=== PATIENT | male | born 1970 | race Caucasian/White ===

== ENCOUNTER 2024-02-05 16:28 | Day surgery (SDC) | payer OTHER, SELFPAY ==
[2024-02-05] VITALS (13 sets, daily range): BP systolic 97–174; BP diastolic 62–91; BMI 29.8
[2024-02-05 12:28] LABS: % Basophils 0.9 % (0-2); % Immature Granulocytes 0.5 % (0-0.5); % Lymphocytes 28.4 % (20.5-51.1); % Monocytes 6.8 % (1.7-9.3); % Neutrophils 61.4 % (42.2-75.2); Absolute Basophils 0.1 10^3/uL (0-0.2); Absolute Eosinophils 0.1 10^3/uL (0-0.7); Absolute Lymphocytes 1.8 10^3/uL (1.2-3.4); Absolute Monocytes 0.4 10^3/uL (0.1-0.6); Hematocrit 44.2 % (39.0-52.0); Hemoglobin 15.8 g/dL (13.0-18.0); Mean Corp Hgb Conc. 35.7 g/dL (33.0-37.0); Mean Corpuscular Hgb 30.1 pg (27.0-31.0); Mean Corpuscular Volume 84.2 fL (80.0-94.0); Mean Platelet Volume 9.2 fL (7.4-10.4); Nucleated Red Blood Cells % 0 % (-); Platelet Count 205 10^3/uL (130-400); Red Blood Cell Count 5.25 10^6/uL (4.70-6.10); Red Cell Dist. Width 12.3 % (11.5-14.5); White Blood Cell Count 6.4 10^3/uL (4.8-10.8)
[2024-02-05 12:40] LABS: INR 0.92; PT 12.2 Sec (11.4-14.6)
[2024-02-05 12:41] LABS: ALT (SGPT) 38 U/L (0-50); AST (SGOT) 38 U/L (17-59); Albumin 4.9 g/dl (3.5-5.0); Alkaline Phosphatase 70 U/L (38-126); Blood Urea Nitrogen 16 mg/dl (9-20); Calcium 9.2 mg/dl (8.4-10.2); Carbon Dioxide 28 mmol/L (22-30); Chloride 105 mmol/L (98-107); Glucose 96 mg/dl (70-99); Potassium 4.6 mmol/L (3.5-5.1); Sodium 138 mmol/L (135-145); Total Bilirubin 0.8 mg/dl (0.2-1.3); Total Protein 7.9 g/dl (6.3-8.2); eGFR > 60.00
[2024-02-05 12:50] LABS: Troponin I < 0.012 ng/ml
--- NOTE | 2024-02-05 14:34 | ED.GENMED ---
History of Present Illness
General
Chief Complaint: Chest Pain
Source: patient
Exam Limitations: none
Time Seen by Provider: 02/05/24 13:56
Nursing documentation reviewed up to this point in time: agreed with
Travel History
Have you had any contact with someone who has COVID-19?: No
Do you have any symptoms of coronavirus? Fever > 100 degrees, chills, cough, shortness of breath, sore throat, loss of taste or smell, muscle aches, or headache?: No
History of Present Illness
History of Present Illness:
Patient with history of CAD, including multiple cardiac stent placements in 2017 as well as cardiac arrest, presents to ED secondary to recurrent left-sided chest pain over the past 2 weeks. Chest pain described as stabbing, radiating to left arm,
without any alleviating or exacerbating factors. Patient also reports shortness of breath with exertion, which he has not experienced in the past. In addition, patient has been experiencing increased 'belching'. Patient and family report that his
symptoms are similar to what he experienced 'heart attack'. Denies recent travel or surgery. Denies leg pain or swelling. Denies back pain. Denies recent injury. Denies recent change in medications or diet.
Past History
Past History
ED Past Medical History: Arrthythmia (Atrial tachycardia), Hypercholesterolemia, CO and Other (Cardiac arrest)
ED Past Surgical History: Cardiac (Stent X3)
Social History
Tobacco: Former smoker
Alcohol: Occasional
Drug: None
Personal: Single
Living: with family
Employment: Employed
Family History
Family History: Early CAD
Review of Systems
Review of Systems
Allergies reviewed?: Yes
All Other Systems: ROS reviewed and negative except as documented in HPI and ROS
Constitutional: Reports no symptoms; Denies fever
EENT: Reports no symptoms
Respiratory: Reports no symptoms
Cardiac: Reports chest pain
ABD/GI: Reports nausea
: Reports no symptoms
Musculoskeletal: Reports no symptoms
Skin: Reports no symptoms
Neurological: Reports no symptoms
Phy Exam
Physical Exam
Physical Exam:
Physical Exam
General: no apparent distress, not acutely ill. afebrile
Head: nc/at. eomi
Neck: supple. no meningeal signs.
Heart: s1/s2 regular rate and rhythm, no murmur. equal radial pulses.
Lungs: no acute respiratory distress. clear bilaterally. chest wall nontender to palpation.
Abdomen: normal bowel sounds. not tender.
Neuro: alert and oriented. no focal neurological deficits
Skin: no rash
Psychiatric: well kept. interactive and cooperative
Extremities: no edema. no calf tenderness.
Scores
Heart Score for Chest Pain Patients
STEMI patient?: No
History: Moderately Suspicious
ECG: Normal
Age: >/= 65 years
Risk Factors: >/= 3 Risk Factors or History of CAD
Troponin: </= Normal Limit
Heart Score for Chest Pain Patients: 5
Heart Score Risk: 20.3% MACE over next 6 weeks
Course
Orders/Labs/Results
Orders:
Orders
02/05/24 Lunch
Cholesterol Lowering
At Your Request: Full Participation
Cholesterol Lowering: Sodium, 2 Gram
02/05/24 12:13
EKG [Electrocardiogram (*1)] Urgent
Reason for Study: Chest Pain
EKG- Treatment ONCE
02/05/24 12:23
Complete Blood Count/With Diff Urgent
Comprehensive Metabolic Panel Urgent
PT/INR [Prothrombin Time] Urgent
Troponin I Urgent
02/05/24 14:16
Nitroglycerin Sublingual [Nitrostat (Sublingual)] 0.4 mg SL NOW STA
CR Chest Portable - 1 View Urgent
Comment:
Reason For Exam: chest pain
Reason Study Needs to be Portable: Patient Unstable
02/05/24 14:48
Nitroglycerin Ointment [Nitro-Bid] 1 inch TOPICAL NOW STA
02/05/24 15:47
Aspirin Chewable [Low Strength Aspirin] 324 mg .ROUTE .STK-MED ONE
02/05/24 16:47
Admit Patient As Directed
Co-Sign Provider:
Level of Care: Post Proc/Surg Recovery
Assign to:: IVU
Physician / Group: dca
Diagnosis: Chest pain
Reason for Overnight Stay: Standard of Care
VTE Contraindication Routine
VTE Mechanical Device Contraindication: Low Risk- LOS < 2 days
Pharmocologic Contraindication: Low Risk- LOS < 2 days
Risk assessment completed and pt is low risk: Yes
Acetaminophen [Tylenol] 650 mg PO Q4HPRN PRN
Activity As Directed
Activity Level: Out of Bed- Ad Miranda
Activity Frequency: Ad Miranda
Internal Combustion Engine Assembler Procedure As Directed
Cardiac Cath Procedure: cardiac catheterization
Notify MD As Directed
Notify physician if: immediately for chest pain or bleeding from access site(s)
Radial Artery Hemostasis Method As Directed
Instructions:: 3 mL out at 1 hour post placement of band
3 mL out at 1 1/2 hours post placement of band
3 mL out at 2 hours post placement of band
Off at 2 1/2 hours post placement of band
If any oozing or hemotoma occurs:: re-inflate band and call provider
Site Checks As Directed
Check access site for bleeding/hematoma: Yes
Comment: on arrival, Q15min x4, Q30min x2, Q1 hr x2, Q2 hr x2, Q4 hr or per
protocol
Vascular Checks As Directed
Location: distal to access site - pulse check
Frequency: Other
Comment: on arrival, Q15min x4, Q30min x2, Q1 hr x2, Q2 hr x2, Q4 hr or per protocol
Vital Signs As Directed
Frequency: Other
Additional Instructions:: on arrival, Q15min x4, Q30min x2, Q1 hr x2, Q2 hr x2, then Q4 hr or per unit
protocol
02/05/24 16:50
Troponin I Urgent
02/05/24 16:59
Furosemide [Lasix] 20 mg IV NOW STA
02/05/24 17:00
0.9% Sodium Chloride 1000 ml [Nss] 1,000 ml IV PER PROTOCOL
Infusion rate in mL/kg/hr:: 1.5
Infusion rate in mL/hr:: 137
Duration of infusion (hours):: 3
Amlodipine [Norvasc] 2.5 mg PO DAILY
02/06/24 05:04
Basic Metabolic Panel IN AM
Cardiovascular Evaluation IN AM
Complete Blood Count/No Diff IN AM
02/06/24 08:23
Discharge Patient As Directed
Is patient a candidate for the influenza vaccine?: No
Do you have a designated caregiver: No
02/06/24 09:00
Pantoprazole [Protonix] 40 mg PO DAILY
02/06/24 12:00
Aspirin Chewable [Low Strength Aspirin] 81 mg PO NOON
Clopidogrel Bisulfate [Plavix] 75 mg PO NOON
Rosuvastatin Calcium [Crestor] 40 mg PO NOON
Abnormal Lab Results
02/05/24
16:34
POC ACT Low Range 294 H Seconds
(116-155)
02/06/24 05:04
02/06/24 05:04
Vital Signs
Initial and Last Documented VS:
Initial Vital Signs
Temp Pulse Resp BP Pulse Ox
98.5 F 56 16 174/83 98
02/05/24 12:15 02/05/24 12:15 02/05/24 12:15 02/05/24 12:15 02/05/24 12:15
Last Documented Vital Signs
Temp Pulse Resp BP Pulse Ox
97.9 F 59 18 121/67 98
02/06/24 07:42 02/06/24 08:00 02/06/24 07:42 02/06/24 07:38 02/06/24 08:22
MDM/Problems Addressed
MDM/Problems Addressed:
EKG: no sig acute changes. 1st troponin normal.
CP resolved after one NTG Sl. Nitropaste applied.
Awaiting cardiology consultation, due to sig. risk factors along with presenting symptoms.
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
*EKG
Interpreted by ED Provider?: Yes
EKG Intrepretation Date: 02/05/24
Heart Rate: 51
Rate: bradycardiac
Rhythm: sinus
[place]: normal axis
Interval: normal interval
Ischemia: T-wave inversion
*Critical Care Note
Total Time (30-74mins, 75-104mins- exclusive of procedures): Not Applicable
ED Attending Note
-
Portions of this chart may have been created with voice recognition software.� Occasional wrong word or��sound alike� substitutions may have occurred due to the inherent limitations of voice recognition software.
Discharge Plan
Departure
Patient Disposition: BUNKER WORKER
Date of Disposition: 02/05/24
Time of Disposition: 15:47
Admit to: clinical laboratory technologist
Presentation/result/management discussed w/ accepting MD/DO:
Discharge Problem:
Chest pain
Interventions
Interventions:
*Risk Screen - Suicide Last Done: 02/05/24 14:20
*General Assessment Last Done: 02/05/24 14:20
*Neglect/Abuse Screening Last Done: 02/05/24 14:20
ED- Fall Risk Assessment Last Done: 02/05/24 14:20
*ED COVID-19 Vaccine History Last Done: 02/05/24 14:20
*Nursing Disposition Last Done: 02/05/24 15:50
ED- Cardiac Assessment Last Done: 02/05/24 14:20
Discharge Date and Time
Discharge Date/Time: 02/05/24 15:55
--- NOTE | 2024-02-05 14:40 | CON.CAR ---
Consultation
Consultation Request
Date/Time Consultation Requested: 02/05/2024
Date/Time Consultation Performed: 02/05/2024
Requesting Provider: Dr. Wong
Performing Provider: Dr. Ruano
Reason for Consultation: Chest pain
Medical History
-
History of Present Illness:
HPI: Anthony is a 53-year-old male with past medical history of CAD with prior stenting to the LAD and circumflex with COOK HELPER FRUIT of the PDA, prior VF arrest, ischemic cardiomyopathy, and hyperlipidemia. He presented to ER for evaluation after he has
noted a few weeks of progressively worsening left-sided chest pain. He states around the same time, he has also noticed decreased exercise capacity with exertional dizziness and shortness of breath. At baseline, he reports he is very active,
however has not been able to do his usual activities due to symptoms. With time, his pain has progressed and he has started to notice radiation into his left arm for the past week. His pain has also become more consistent and he notes the pain in
his chest is consistently there, however will wax and wane in severity. He has been compliant with his aspirin, Plavix, and Crestor. He has not taken any sublingual nitroglycerin at home. He also reports that over this time period, he has noted
increased belching. He reports these symptoms feel similar to his symptoms prior to his cardiac arrest in 2016. He called the office on 02/03/2024 and was instructed to come to the ER, however he did not and wanted to wait till after he was seen by
his PCP. He was seen by his PCP on 02/03/2024 and labwork was ordered, however he has not gotten results yet back. Given progressively worsening symptoms, he came to the ER for evaluation. In ER, initial troponin is negative, however given active
chest pain, he was given sublingual nitroglycerin and had Nitropatch placed. Following this, his pain is resolved entirely. Initially, blood pressure was significantly elevated on arrival at 174/83, however has improved following nitroglycerin to
113/77. Cardiology consulted given significant history and risk factors with concerning symptoms.
PMH:
CAD
s/p 3.5 x 38 and 3.0 x 38 mm Xience SHILPA to proximal and mid LAD w/ PTCA of first diagonal 03/24/2016
s/p 3.5 x 15 mm Xience SHILPA to mid circumflex 03/31/2016
stable CAD w/ COOK HELPER FRUIT of PDA, 50% stenosis of OM1 by cath 06/07/2021
h/o OOH VF arrest 02/2016
3 rounds of epi and defibrillation x3
Ischemic cardiomyopathy
HLD
Past Medical History
Past Medical History: Other (In HPI)
Past Surgical History: Cardiac (SHILPA to LAD, circ, diag) and Orthopedic
Social History
Tobacco: Former Smoker
Alcohol: Occasional
Drug: None
Personal:
Living: With Family
Employment: Employed
Family History
Family History: CAD
Allergies / Home Medications
Allergy/AdvReac Type Severity Reaction Status Date / Time
lactose AdvReac Nausea Verified 02/05/24 12:17
peanuts Allergy Swelling Uncoded 02/05/24 12:17
Medication Instructions Recorded Confirmed Type
aspirin 81 mg chewable tablet 81 mg PO DAILY ##30 04/02/16 06/07/21 Rx
clopidogrel 75 mg tablet 75 mg PO DAILY #30 tabs 04/02/16 06/07/21 Rx
rosuvastatin 40 mg tablet (Crestor) 30 mg PO DAILY 12/08/18 06/07/21 History
amoxicillin 500 mg capsule 500 mg PO DAILY 06/07/21 06/07/21 History
Review of Systems
-
History Source: Patient and Family
All other systems: Negative unless noted
Physical Exam
Vital Signs
Temp Pulse Resp BP Pulse Ox
98.5 F 56 21 138/82 98
02/05/24 12:15 02/05/24 14:30 02/05/24 14:30 02/05/24 14:10 02/05/24 14:30
Lab Results
02/05/24 12:23
02/05/24 12:23
Troponin I < 0.012 ng/ml 02/05/24 12:23
Physical Exam
General: Well Developed, Well Nourished and No Apparent Distress
HEENT: Normocephalic, Anicteric and Moist Mucous Membranes
Respiratory: Clear and Non Labored Respirations
Cardiac: S1/S2 and Regular Rhythm
Musculoskeletal: No Clubbing, No Cyanosis and No Edema
Skin: Warm and Dry
Neuro: AO x 3 and Nonfocal/Grossly Intact
Psych: Calm
Impression / Plan
-
PCP: Dr. Johnson
Back Tender Cloth Printing: Dr. Florence
Impression:
Presented with progressive chest pain
Unstable angina
CAD
s/p 3.5 x 38 and 3.0 x 38 mm Xience SHILPA to proximal and mid LAD w/ PTCA of first diagonal 03/24/2016
s/p 3.5 x 15 mm Xience SHILPA to mid circumflex 03/31/2016
stable CAD w/ COOK HELPER FRUIT of PDA, 50% stenosis of OM1 by cath 06/07/2021
h/o OOH VF arrest 02/2016
3 rounds of epi and defibrillation x3
Ischemic cardiomyopathy
HLD
Echo 11/09/2019: EF 52%, aortic sclerosis with trace AR, trace MR
LHC 06/07/2021: Left Main: Normal. LAD: There is a 25% ostial LAD stenosis, unchanged from the previous catheterization.� The proximal to mid LAD stents are widely patent.� The first diagonal which had PTCA during his RI is widely patent.�
Well-developed collaterals from the apical LAD fill the RPDA. Circumflex: Luminal irregularities.� The stent in the mid circumflex is widely patent.� The very small OM1 has a proximal 50% stenosis, actually appears improved since the previous
catheterization. RCA: Luminal irregularities. The mid RCA has some ectasia and plaque.� The mid and mid to distal RPDA is small with diffuse disease and essentially a chronic total occlusion which fills by well-developed collaterals from the LAD,
unchanged from the previous catheterization.
Plan:
-Presented with progressively worsening chest pain and left arm pain for the past few weeks.
-Symptoms have progressed to the point that he has constant pain that waxes and wanes in severity. Also has noted decreased exercise tolerance with exertional SOB and dizziness.
-He has history of CAD w/ prior stenting of the LAD, circ, and first diagonal as described above. Compliant w/ aspirin and plavix as OP
-Given symptoms concerning for unstable angina with significant cardiac history, will take urgently for cardiac catheterization today.
-EKG reviewed. SR with no acute ischemic changes noted, stable from prior.
-BP elevated on arrival. Has history of dizziness and hypotension/bradycardia and has not tolerated lisinopril or metoprolol in the past.
-Blood pressures improved after nitro patch placed in ER. Consider re-trialing low dose beta aquiles
-h/o ischemic cardiomyopathy. Recheck echo this admission. EF was as low as 25-30% in 2016, however was improved to 52% by echo 10/2019.
-Check CVE, Hgb A1c in AM.
-Continue Crestor 40mg daily.
HPI: Anthony is a 53-year-old male with past medical history of CAD with prior stenting to the LAD and circumflex with COOK HELPER FRUIT of the PDA, prior VF arrest, ischemic cardiomyopathy, and hyperlipidemia. He presented to ER for evaluation after he has
noted a few weeks of progressively worsening left-sided chest pain. He states around the same time, he has also noticed decreased exercise capacity with exertional dizziness and shortness of breath. At baseline, he reports he is very active,
however has not been able to do his usual activities due to symptoms. With time, his pain has progressed and he has started to notice radiation into his left arm for the past week. His pain has also become more consistent and he notes the pain in
his chest is consistently there, however will wax and wane in severity. He has been compliant with his aspirin, Plavix, and Crestor. He has not taken any sublingual nitroglycerin at home. He also reports that over this time period, he has noted
increased belching. He reports these symptoms feel similar to his symptoms prior to his cardiac arrest in 2015. He called the office on 02/03/2024 and was instructed to come to the ER, however he did not and wanted to wait till after he was seen by
his PCP. He was seen by his PCP on 02/03/2024 and labwork was ordered, however he has not gotten results yet back. Given progressively worsening symptoms, he came to the ER for evaluation. In ER, initial troponin is negative, however given active
chest pain, he was given sublingual nitroglycerin and had Nitropatch placed. Following this, his pain is resolved entirely. Initially, blood pressure was significantly elevated on arrival at 174/83, however has improved following nitroglycerin to
113/77. Cardiology consulted given significant history and risk factors with concerning symptoms.
Data Reviewed
-
EKG: Tracing Personally Visualized and interpreted
Radiology: Report Reviewed by me
Labs: Labs Reviewed by me
Old Records: Reviewed
[2024-02-05] MEDS: NITROSTAT (SUBLINGUAL) 0.400000000000000022 MG SL (14:41)
--- NOTE | 2024-02-05 14:48 | EDRN ---
Post NTG pt's pain completely gone from his chest and L arm. Dr. Encinas informed and just in to see pt.
--- NOTE | 2024-02-05 14:48 | EDRN ---
Dr. Wong said Dr. Olson to be down to see pt.
[2024-02-05] MEDS: NITRO-BID 1 INCH TOPICAL (14:50)
--- NOTE | 2024-02-05 14:58 | EDRN ---
Vilma MARTINEZ w/ cardiology in room w/pt at this time.
--- NOTE | 2024-02-05 15:36 | EDRN ---
Dr. Morris w/ cardiology in room w/pt discussing plan.
--- NOTE | 2024-02-05 15:45 | EDRN ---
Report given to Marita CASANOVA in label press operator at this time. Dr. Morris has consent for procedure w/ her.
--- NOTE | 2024-02-05 15:53 | ITS.CL.CATH ---
Home Service Advisor - Catheterization
Cardiac Catheterization
Procedure Report:
LEFT HEART CATHETERIZATION
Date of Procedure: February 05, 2024
Referring: [place] emergency department
PROCEDURES:
1. Left heart catheterization, coronary angiogram.
2. Ultrasound-guided access
3. Physiologic functional testing with IFR of proximal LAD
INDICATION: Mr Prabhakar is a 53-year-old gentleman with past medical history of an anterior wall ND complicated by out of hospital cardiac arrest, hypothermia and multivessel CAD with stenting of the mid to proximal LAD and PTCA of the D1 February
2015,� 90% small vessel RPDA left untreated (HOUSEHOLD WORKER since 2020) and later circumflex stented March 31, 2016 on chronic aspirin and Plavix who now presents with exertional chest discomfort and shortness of breath progressive over the last couple of
weeks being referred for left heart catheterization to rule out obstructive CAD.
ACCESS: Right radial artery, 6 [place] sheath, under ultrasound-guidance
HEMODYNAMICS : (mmHg)
AO (s/d) : 118/72
LV (s/d) : 115/5
LVEDP : 17
CORONARY FINDINGS
DOMINANCE: Right
LEFT MAIN: The left coronary artery is a large-caliber vessel which gives rise to the left anterior descending artery and the left circumflex artery. There is minimal luminal irregularities.
LEFT ANTERIOR DESCENDING: There is a 50-60% eccentric proximal LAD stenosis (proximal to prior stents), very mildly worse compared to the previous catheterization in 2020.� This lesion was IFR negative at 0.92. The proximal to mid LAD stents are
widely patent.� The first diagonal which had PTCA during his index ND in 2015 is patent.� Well-developed collaterals from the apical LAD fill the RPDA.
LEFT CIRCUMFLEX: The left circumflex artery is a medium caliber vessel which gives rise to multiple small to medium caliber obtuse marginal branches. The stent in the mid circumflex is widely patent.� There is mild diffuse atherosclerotic plaque in
the proximal left circumflex.
RIGHT CORONARY ARTERY: The right coronary artery is a large-caliber, dominant vessel which gives rise to right posterior descending artery and the right posterolateral system. Mid RCA has mild diffuse atherosclerotic plaque with mild degree of
ectasia. The mid and mid to distal RPDA is small with diffuse disease and essentially a chronic total occlusion which fills by well-developed collaterals from the LAD, unchanged from the previous catheterization in 2020.
HEMODYNAMIC ASSESSMENT OF THE PROXIMAL LAD WITH A [place] OMNI WIRE: The origin of the left coronary artery was cannulated with a 6 Fr EBU 3.75 guide catheter. Intravenous heparin was administered and the ACT was followed during the procedure. Two
hundred micrograms of intracoronary nitroglycerin was given through the guide catheter. A [place] Omni wire was advanced to the guide catheter tip and normalized in the left main. The Omni wire was then carefully manipulated across the stenosis in
the proximal LAD into the proximal LAD with the iFR above the ischemic threshold serially measuring 0.98, 0.97, 0.97. The Omni wire was then advanced into the mid LAD and IFR was rechecked which was still above the ischemic threshold at 0.92, 0.92
and 0.93. The Omni wire was then pulled back to the guide catheter where the Pd/Pa measured 1.0 confirming no baseline drift in pressure readings.
SEDATION: 51 minutes of procedural sedation was utilized. An independent medical coordinator pesticide use was present to assist with and help manage the patient's level of consciousness and physiologic status.
RADIATION SUMMARY: Fluoro Time (min): 6.1, Dose (mGy): 656.4, DAP (Gy.cm2) : 43.8
Closure Device: Vascular band over right radial artery, 12 cc of air
CONCLUSIONS
1. Widely patent LAD and circumflex stents, HOUSEHOLD WORKER of the PDA, unchanged from the previous catheterization.
2. IFR negative 50 to 60% proximal LAD stenosis proximal to prior stents.
3. Mildly elevated LVEDP at 17 mmHg.
RECOMMENDATIONS
1. Will trial low-dose diuretic given elevated LVEDP low-dose amlodipine for possible microvessel disease.
2. Optimization of cardiovascular risk factors.
3. Wean radial band per protocol.
4. Full echocardiogram to assess left ventricular systolic function.
5. Referral for outpatient cardiac rehab
Copy to: Peter Florence
Alexandra Ruano MD, FACC, [facility]
[2024-02-05 16:40] LABS: ACT-LR - POC 294 Seconds (116-155)
--- NOTE | 2024-02-05 17:13 | CM ---
Reviewed chart. Met with Mr. Prabhakar to review discharge plans. He states prior to admission he resides with his significant other in a two sotry home without any steps to enter. He states he has a bedroom/full bathroom on each floor. He states
prior to admission he was independent with ambulation and adls. He states he does not have any DME in the home. He states he has a prescription plan. The discharge plan is to return home with his significant other when medically stable.
[2024-02-05 17:28] LABS: Troponin I < 0.012 ng/ml
[2024-02-05] MEDS: NORVASC PO (17:41)
--- NOTE | 2024-02-05 17:55 | PTCARENOTE ---
PT's BP 103/68, 97,65, 102/64, HR 40's sinus tiny. Pt's minerva and Chadwick heredia, Dr Ruano aware.
[2024-02-06 04:58] VITALS: BP 125/71
[2024-02-06 05:19] LABS: Hematocrit 40.5 % (39.0-52.0); Hemoglobin 14.7 g/dL (13.0-18.0); Mean Corp Hgb Conc. 36.3 g/dL (33.0-37.0); Mean Corpuscular Hgb 30.1 pg (27.0-31.0); Mean Platelet Volume 9.5 fL (7.4-10.4); Platelet Count 184 10^3/uL (130-400); Red Blood Cell Count 4.88 10^6/uL (4.70-6.10); Red Cell Dist. Width 12.4 % (11.5-14.5); White Blood Cell Count 7.3 10^3/uL (4.8-10.8)
--- NOTE | 2024-02-06 05:19 | PTCARENOTE ---
R radial band came off without an issue- SB 40s-50s overnight. no complaints of chest pain. discussed POC. ambulating in the room as a self. BPs 110s-120s/70s-90s.
[2024-02-06 05:42] LABS: Blood Urea Nitrogen 17 mg/dl (9-20); Calcium 8.9 mg/dl (8.4-10.2); Carbon Dioxide 26 mmol/L (22-30); Chloride 107 mmol/L (98-107); Estimated Creatinine Clearance 104 ml/min; Glucose 93 mg/dl (70-99); HDL Cholesterol 43 mg/dl; LDL Cholesterol, Calculated 81 mg/dl; Potassium 4.2 mmol/L (3.5-5.1); Sodium 137 mmol/L (135-145); Total Cholesterol 148 mg/dl (50-199); Triglyceride 122 mg/dl (10-149); Very Low Density Lipoprotein 24 mg/dl (0-30); eGFR > 60.00
[2024-02-06 07:38] VITALS: BP 121/67
[2024-02-06] MEDS: NORVASC 2.5 MG PO (08:08)
--- NOTE | 2024-02-06 08:10 | W.PN.CARDCBS ---
Addendum entered and electronically signed by Arsenio Olson MD 02/06/24 12:01:
I saw and examined the patient.
The [employer] [facility] [facility] [facility] or PA's note was reviewed and I agree with the note.
Comment: General: Well developed, well nourished in NAD.
Stable cardiology status for discharge
Follow-up arranged
Low-dose Norvasc was added
Discharge to home
Discussed with nurse
Original Note:
Today's Communication / Plan
-
Aspirin, Plavix
Low-dose Norvasc
Protonix
Crestor 40mg
Sublingual nitro
Outpatient echo
For DC today
total DC time >30 minutes
Impression / Plan
-
PCP: Dr. Johnson
Pitching Coach: Dr. Florence
Impression:
Presented with progressive chest pain
Unstable angina
CAD
s/p 3.5 x 38 and 3.0 x 38 mm Xience SHILPA to proximal and mid LAD w/ PTCA of first diagonal 03/24/2016
s/p 3.5 x 15 mm Xience SHILPA to mid circumflex 03/31/2016
stable CAD w/ SENIOR ACCOUNT MANAGER of PDA, 50% stenosis of OM1 by cath 06/07/2021
h/o OOH VF arrest 02/2016
3 rounds of epi and defibrillation x3
Ischemic cardiomyopathy
HLD
Echo 11/09/2019: EF 52%, aortic sclerosis with trace AR, trace MR
C 06/07/2021: Left Main: Normal. LAD: There is a 25% ostial LAD stenosis, unchanged from the previous catheterization.� The proximal to mid LAD stents are widely patent.� The first diagonal which had PTCA during his PR is widely patent.�
Well-developed collaterals from the apical LAD fill the RPDA. Circumflex: Luminal irregularities.� The stent in the mid circumflex is widely patent.� The very small OM1 has a proximal 50% stenosis, actually appears improved since the previous
catheterization. RCA: Luminal irregularities. The mid RCA has some ectasia and plaque.� The mid and mid to distal RPDA is small with diffuse disease and essentially a chronic total occlusion which fills by well-developed collaterals from the LAD,
unchanged from the previous catheterization.
Plan:
-presented with daily chest pain over the last 2 weeks
-Cardiac catheterization 02/06/2024 with stable CAD, widely patent LAD and circumflex stents, SENIOR ACCOUNT MANAGER of PDA, IFR negative 50 to 60% proximal LAD stenosis. Plan for medical therapy.
-R radial site c/d/i
-EKGs nonischemic
-as bradycardic at baseline, will add low dose norvasc 2.5mg for antianginal
-continue asa, plavix
-continue crestor. LDL 81. he reports he has recently changed his diet to be healthier
-he complains of some issues with gas. he was previously seen by GI, however not recently. will add protonix and follow
-should be scheduled for OP echo
-Op cardiac follow up arranged
-for DC to home today if ambulatory without recurrence of CP
-d/w nursing
HPI: Anthony is a 53-year-old male with past medical history of CAD with prior stenting to the LAD and circumflex with SENIOR ACCOUNT MANAGER of the PDA, prior VF arrest, ischemic cardiomyopathy, and hyperlipidemia. He presented to ER for evaluation after he has
noted a few weeks of progressively worsening left-sided chest pain. He states around the same time, he has also noticed decreased exercise capacity with exertional dizziness and shortness of breath. At baseline, he reports he is very active,
however has not been able to do his usual activities due to symptoms. With time, his pain has progressed and he has started to notice radiation into his left arm for the past week. His pain has also become more consistent and he notes the pain in
his chest is consistently there, however will wax and wane in severity. He has been compliant with his aspirin, Plavix, and Crestor. He has not taken any sublingual nitroglycerin at home. He also reports that over this time period, he has noted
increased belching. He reports these symptoms feel similar to his symptoms prior to his cardiac arrest in 2016. He called the office on 02/03/2024 and was instructed to come to the ER, however he did not and wanted to wait till after he was seen by
his PCP. He was seen by his PCP on 02/03/2024 and labwork was ordered, however he has not gotten results yet back. Given progressively worsening symptoms, he came to the ER for evaluation. In ER, initial troponin is negative, however given active
chest pain, he was given sublingual nitroglycerin and had Nitropatch placed. Following this, his pain is resolved entirely. Initially, blood pressure was significantly elevated on arrival at 174/83, however has improved following nitroglycerin to
113/77. Cardiology consulted given significant history and risk factors with concerning symptoms.
Progress Note - Pitching Coach
Subjective
Date of Service: February 06, 2024
No chest pain overnight
Objective
Labs:
02/06/24 05:04
02/06/24 05:04
Labs
Hgb 14.7 g/dL (13.0-18.0) 02/06/24 05:04
Hct 40.5 % (39.0-52.0) 02/06/24 05:04
Plt Count 184 10^3/uL (130-400) 02/06/24 05:04
PT 12.2 Sec (11.4-14.6) 02/05/24 12:23
INR 0.92 02/05/24 12:23
Sodium 137 mmol/L (135-145) 02/06/24 05:04
Potassium 4.2 mmol/L (3.5-5.1) 02/06/24 05:04
BUN 17 mg/dl (9-20) 02/06/24 05:04
Creatinine 0.8 mg/dL (0.7-1.3) 02/06/24 05:04
Glucose 93 mg/dl (70-99) 02/06/24 05:04
Troponins
02/05/24 02/05/24
12:23 16:50
Troponin I < 0.012 < 0.012
Vital Signs and I&O:
Vital Signs
Temp Pulse Resp BP Pulse Ox
97.9 F 54 18 125/71 97
02/06/24 07:42 02/06/24 05:00 02/06/24 07:42 02/06/24 04:58 02/06/24 07:42
Vital Signs
Temp Pulse Resp BP Pulse Ox
97.9 F 54 18 125/71 97
02/06/24 07:42 02/06/24 05:00 02/06/24 07:42 02/06/24 04:58 02/06/24 07:42
Physical Exam
Physical Exam
GEN: No distress, awake, alert, oriented x3
HEENT: supple, anicteric, mmm, EOMI
LUNGS: CTA bilaterally, no wheezes/rales
CV: Reg and bradycardia, S1/S2, no murmur
ABD: soft, BS+, NT/ND
EXT: No cyanosis, clubbing, edema
NEURO: Gross non-focal
SKIN: Warm, pink, dry. No rash. Right wrist site clean dry and intact, mild surrounding ecchymoses
[2024-02-06] MEDS: PROTONIX 40 MG PO (08:17)
--- NOTE | 2024-02-06 08:23 | W.DS.TRANS ---
DC Summary - [employer]
-
Discharge Instructions:
Discharge Diagnosis/Procedures Cardiac cath
Diet Low Cholesterol
Activity As tolerated
Driving Restrictions No driving for 24 hours
Bathing Restrictions None
Instructions:
Stand-Alone Forms: DC Instructions- Cath/EP Lab
Changes to Home Medications: Yes
Discharge Medications:
DC Medications w/original date entered in [facility]
rosuvastatin 40 mg tablet (Crestor) 40 mg PO NOON 12/08/18
Lactobac no.2-Bifidobac no.1-S. thermo 112.5 billion cell capsule (Visbiome) 1 cap PO DAILY 02/05/24
amlodipine 2.5 mg tablet 2.5 mg PO DAILY #30 tabs 02/05/24
aspirin 81 mg chewable tablet 81 mg PO NOON 02/05/24
clopidogrel 75 mg tablet 75 mg PO NOON 02/05/24
coQ10 (ubiquinol) 100 mg capsule 200 mg PO DAILY 02/05/24
nitroglycerin 0.4 mg sublingual tablet 0.4 mg sublingual [id number] PRN chest pain #25 tabs 02/06/24
pantoprazole 40 mg tablet,delayed release (Protonix) 40 mg PO DAILY #30 tabs 02/06/24
Home Medication Changes
norvasc, protonix, SL nitro are new
Pending Results: No
[2024-02-06 08:43] VITALS: BMI 28.0
== END 2024-02-06 12:07 | disposition home or self-care (01) ==
LOC: CATH 16:28
PROVIDERS: Nurse Practitioner Adult Health; ATTENDING PHYSICIAN Internal Medicine Cardiovascular Disease; EMERGENCY PHYSICIAN Emergency Medicine; FAMILY PHYSICIAN Family Medicine
DX: I25.110 Atherosclerotic heart disease of native coronary artery with unstable angina pectoris (principal); Z86.74 Personal history of sudden cardiac arrest; Z95.5 Presence of coronary angioplasty implant and graft; Z82.49 Family history of ischemic heart disease and other diseases of the circulatory system; Z87.891 Personal history of nicotine dependence; I25.5 Ischemic cardiomyopathy; I25.82 Chronic total occlusion of coronary artery; Z79.02 Long term (current) use of antithrombotics/antiplatelets; Z79.82 Long term (current) use of aspirin
CPT/HCPCS: 99152; 99153; 71045; 76937; 80048; 80053; 80061; 84484; 85025; 85027; 85347; 85610; 93005; 93458; 93571; 99285; C1769; C1894; Q9967

== ENCOUNTER → 2024-02-08 16:39 | Outpatient (REF) | payer OTHER, SELFPAY | LOC: HWRAD 16:39 | PROVIDERS: ATTENDING PHYSICIAN Family Medicine | DX: K59.00 Constipation, unspecified (principal) | CPT/HCPCS: 74018 ==

== ENCOUNTER → 2024-03-01 15:39 | Outpatient (REF) | payer OTHER, SELFPAY | LOC: RAD 15:39 | PROVIDERS: ATTENDING PHYSICIAN Family Medicine | DX: R10.31 Right lower quadrant pain (principal); R50.9 Fever, unspecified | CPT/HCPCS: 74177; Q9967 ==

== ENCOUNTER → 2024-04-07 12:23 | Outpatient (REF) | payer OTHER, SELFPAY | LOC: RAD 12:23 | PROVIDERS: ATTENDING PHYSICIAN Family Medicine | DX: R10.9 Unspecified abdominal pain (principal); Z87.19 Personal history of other diseases of the digestive system | CPT/HCPCS: 74177; Q9967 ==

== ENCOUNTER → 2024-07-07 15:11 | Outpatient (REF) | payer OTHER, SELFPAY | LOC: RCS 15:11 | PROVIDERS: ATTENDING PHYSICIAN Nurse Practitioner; FAMILY PHYSICIAN Family Medicine | DX: I25.5 Ischemic cardiomyopathy (principal) | CPT/HCPCS: 93306 ==

== ENCOUNTER → 2024-09-09 06:33 | Day surgery (SDC) | payer OTHER, SELFPAY | LOC: GI 06:33 | PROVIDERS: ATTENDING PHYSICIAN Internal Medicine Gastroenterology | DX: K57.30 Diverticulosis of large intestine without perforation or abscess without bleeding (principal); D12.8 Benign neoplasm of rectum; K64.8 Other hemorrhoids; Z87.19 Personal history of other diseases of the digestive system | CPT/HCPCS: 45385; 45380; 88305 ==